=== PATIENT | female | born 2000 | race Caucasian/White ===

== ENCOUNTER 2023-05-05 01:47 | Emergency (ER) | payer OTHER ==
[2023-05-05 02:24] VITALS: BP 129/86; PULSE 98; RESP 20; TEMP 98.2; BMI 25.0
[2023-05-05] MEDS ORDERED: ACETAMINOPHEN 500 MG TABLET (FP) PO ONE (02:54)
[2023-05-05] MEDS ORDERED: ACETAMINOPHEN 325 MG TABLET (FP) ONE (03:03)
[2023-05-05] MEDS ORDERED: METHOCARBAMOL 500 MG TABLET PO ONE (03:21)
[2023-05-05] MEDS ORDERED: METHOCARBAMOL 500 MG TABLET ONE (04:00)
== END 2023-05-05 04:49 | disposition home or self-care (01) ==
LOC: JER 01:47
DX: M54.2 Cervicalgia (principal); S13.4XXA Sprain of ligaments of cervical spine, initial encounter; R51.9 Headache, unspecified; V43.62XA Car passenger injured in collision with other type car in traffic accident, initial encounter; Y92.410 Unspecified street and highway as the place of occurrence of the external cause
CPT/HCPCS: 70450-TC; 72125-TC; 99284-25